=== PATIENT | female | born 1995 | race Caucasian/White ===

== ENCOUNTER 2017-01-04 19:50 | Emergency (ER) | payer BC ==
[~2017-01-04] VITALS: Ht 160 cm; Wt 68.0 kg
[~2017-01-04 19:50] MED LIST: AMOXICILLIN500 MG PO; ATARAX25 MG PO; BIRTH CONTROL1 EAC1 PO; GLUCOSAMINE SU500 M2 PO; MACROBID100 M1 PO; MOTRIN800 MG PO; NKHM; PREDNICOT10 MG PO; PREDNICOT20 MG PO; ZITHROMAX Z PA250 MG PO; ZITHROMAX250 MG PO; ZOFRAN4 MG PO
[2017-01-04] MEDS ORDERED: AUGMENTIN 875-875 MG PO (20:22)
== END 2017-01-04 20:17 | disposition home or self-care (01) ==
LOC: ED 19:50
DX: J02.9 Acute pharyngitis, unspecified (principal); Z79.899 Other long term (current) drug therapy

== ENCOUNTER 2017-03-15 19:35 | Emergency (ER) | payer BC ==
[~2017-03-15] VITALS: Ht 160 cm; Wt 68.0 kg
[~2017-03-15 19:35] MED LIST changes: +AUGMENTIN 875-875 MG PO
[2017-03-15] MEDS ORDERED: AMINOPHYLLIN200 MG PO (20:39)
== END 2017-03-15 22:28 | disposition home or self-care (01) ==
LOC: ED 19:35
DX: J02.9 Acute pharyngitis, unspecified (principal); Z79.899 Other long term (current) drug therapy

== ENCOUNTER 2017-05-18 19:34 | Emergency (ER) | payer BC ==
[~2017-05-18] VITALS: Ht 160 cm; Wt 68.0 kg
[~2017-05-18 19:34] MED LIST changes: +AMINOPHYLLIN200 MG PO
[2017-05-18] MEDS ORDERED: VIBRAMYCIN100 MG PO (19:53)
== END 2017-05-18 19:57 | disposition home or self-care (01) ==
LOC: ED 19:34
DX: S30.861A Insect bite (nonvenomous) of abdominal wall, initial encounter (principal); R03.0 Elevated blood-pressure reading, without diagnosis of hypertension; W57.XXXA Bitten or stung by nonvenomous insect and other nonvenomous arthropods, initial encounter; Y93.89 Activity, other specified; Y92.9 Unspecified place or not applicable; Y99.9 Unspecified external cause status

== ENCOUNTER 2017-06-17 19:45 | Emergency (ER) | payer BC ==
[~2017-06-17] VITALS: Ht 160 cm; Wt 63.5 kg
[~2017-06-17 19:45] MED LIST changes: +VIBRAMYCIN100 MG PO
[2017-06-17] MEDS ORDERED: OMNICEF300 MG PO (20:40)
== END 2017-06-17 20:46 | disposition home or self-care (01) ==
LOC: ED 19:45
DX: J03.90 Acute tonsillitis, unspecified (principal); Z79.899 Other long term (current) drug therapy

== ENCOUNTER 2019-08-19 18:19 | Emergency (ER) | payer SELFPAY ==
[~2019-08-19] VITALS: Ht 160 cm; Wt 68.0 kg
[~2019-08-19 18:19] MED LIST changes: +CLARITIN10 MG PO; +FLONASE ALLERG9.9 ML NAS; +OMNICEF300 MG PO; +PREDNISONE10 MG PO; +ROBITUSSIN DM 105 ML PO
== END 2019-08-19 19:24 | disposition home or self-care (01) ==
LOC: ED 18:19
DX: R51 Headache (principal); R11.2 Nausea with vomiting, unspecified

== ENCOUNTER 2019-10-11 12:47 | Emergency (ER) | payer SELFPAY ==
[~2019-10-11] VITALS: Ht 167.6 cm; Wt 77.1 kg
== END 2019-10-11 14:38 | disposition home or self-care (01) ==
LOC: ED 12:47
DX: Z32.01 Encounter for pregnancy test, result positive (principal)